=== PATIENT | female | born 1980 | race Hispanic/Latino ===

== ENCOUNTER → 2019-02-08 | Outpatient (CLI) | payer MEDICARE | END | disposition home or self-care (01) | LOC: OIH 15:55 | PROVIDERS: ATTEND Family Medicine | DX: B20 Human immunodeficiency virus [HIV] disease (principal); R76.12 Nonspecific reaction to cell mediated immunity measurement of gamma interferon antigen response without active tuberculosis | CPT/HCPCS: 71046 ==